=== PATIENT | female | born 1965 | race Caucasian/White ===

== ENCOUNTER → 2016-04-03 | Outpatient (CLI) | payer BC ==
--- NOTE | 2016-04-05 08:31 | MM ---
Reason for exam: screening (asymptomatic). Last mammogram was performed 1 year ago. History: Benign core biopsy of the left breast, 2008. Attempted Procedure of the right breast, April 24, 2006. Took hormonal contraceptives for 2 years beginning at age 18. Physical Findings: A clinical breast exam by your physician is recommended on an annual basis and results should be correlated with mammographic findings. MG 3D Screening Mammo W/Cad Bilateral CC and MLO view(s) were taken. Prior study comparison: March 22, 2015, bilateral MG 3d diag mammo w/cad [facility]. September 07, 2014, left breast MG diagnostic mammo LT w CAD. March 02, 2014, bilateral MG screening mammo w CAD. February 26, 2013, bilateral digital screening mammo w/CAD. There are scattered fibroglandular densities. No significant changes when compared with prior studies. ASSESSMENT: Negative, BI-RAD 1 RECOMMENDATION: Routine screening mammogram of both breasts in 1 year.
== END | disposition home or self-care (01) ==
LOC: RADMAMWWP 10:22
PROVIDERS: ATTEND Internal Medicine
DX: Z12.31 Encounter for screening mammogram for malignant neoplasm of breast (principal)
CPT/HCPCS: 77063; G0202

== ENCOUNTER → 2017-05-07 | Outpatient (CLI) | payer BC ==
--- NOTE | 2017-05-08 07:39 | MM ---
Reason for exam: screening (asymptomatic). Last mammogram was performed 1 year and 1 month ago. History: Benign core biopsy of the left breast, 2008. Attempted Procedure of the right breast, April 24, 2006. Took hormonal contraceptives for 2 years beginning at age 18. Physical Findings: A clinical breast exam by your physician is recommended on an annual basis and results should be correlated with mammographic findings. MG 3D Screening Mammo W/Cad Bilateral CC and MLO view(s) were taken. Prior study comparison: April 03, 2016, bilateral MG 3d screening mammo w/cad. March 22, 2015, bilateral MG 3d diag mammo w/cad [facility]. The breast tissue is heterogeneously dense. This may lower the sensitivity of mammography. Finding: There are typically benign round, linear calcifications in both breasts. There is a chronic nodularity in the right breast. There is no discrete abnormality. ASSESSMENT: Benign, BI-RAD 2 RECOMMENDATION: Routine screening mammogram of both breasts in 1 year.
== END | disposition home or self-care (01) ==
LOC: RADMAMWWP 07:50
PROVIDERS: ATTEND Internal Medicine
DX: Z12.31 Encounter for screening mammogram for malignant neoplasm of breast (principal)
CPT/HCPCS: 77063; 77067

== ENCOUNTER → 2018-06-10 | Outpatient (CLI) | payer BC ==
--- NOTE | 2018-06-11 10:13 | MM ---
Reason for exam: screening (asymptomatic). Last mammogram was performed 1 year and 1 month ago. History: Benign core biopsy of the left breast, 2008. Attempted Procedure of the right breast, April 24, 2006. Took hormonal contraceptives for 2 years beginning at age 18. Physical Findings: A clinical breast exam by your physician is recommended on an annual basis and results should be correlated with mammographic findings. MG 3D Screening Mammo W/Cad Bilateral CC and MLO view(s) were taken. Prior study comparison: May 07, 2017, bilateral MG 3d screening mammo w/cad. April 03, 2016, bilateral MG 3d screening mammo w/cad. The breast tissue is heterogeneously dense. This may lower the sensitivity of mammography. Stable benign calcifications. There is chronic nodularity in the left breast. There is no dominant lesion. No significant changes when compared with prior studies. ASSESSMENT: Benign, BI-RAD 2 RECOMMENDATION: Routine screening mammogram of both breasts in 1 year.
== END | disposition home or self-care (01) ==
LOC: RADMAMWWP 07:31
PROVIDERS: ATTEND Internal Medicine
DX: Z12.31 Encounter for screening mammogram for malignant neoplasm of breast (principal)
CPT/HCPCS: 77063; 77067

== ENCOUNTER → 2019-10-11 | Outpatient (CLI) | payer BC ==
[2019-10-11 08:46] LABS: Basophils # (A) 0.1 k/uL (0-0.2); Basophils % (A) 1 %; Eosinophils # (A) 0.4 k/uL (0-0.7); Eosinophils % (A) 5 %; HCT 39.4 % (34.0-46.0); HGB 13.3 gm/dL (11.4-16.0); Lymphocytes # (A) 1.8 k/uL (1.0-4.8); Lymphocytes % (A) 25 %; MCH 31.1 pg (25.0-35.0); MCHC 33.6 g/dL (31.0-37.0); MCV 92.5 fL (80.0-100.0); Mean Platelet Volume 8.5; Monocytes # (A) 0.5 k/uL (0-1.0); Monocytes % (A) 6 %; Neutrophils # (A) 4.3 k/uL (1.3-7.7); Neutrophils % (A) 60 %; Platelet Count 178 k/uL (150-450); RBC 4.26 m/uL (3.80-5.40); RDW 12.8 % (11.5-15.5); WBC 7.3 k/uL (3.8-10.6)
[2019-10-11 19:27] LABS: Hemoglobin A1C 6.2 % (4.0-6.0)
[2019-10-11 20:21] LABS: African American GFR (CKD) 96.2 (60.0-200.0); Albumin 4.3 g/dL (3.80-4.90); Albumin/Globulin Ratio 2.39 (1.60-3.17); Anion Gap 9.3 mmol/L (4.00-12.00); BUN/Creat Ratio 18.75 Ratio (12.00-20.00); Calcium 9.7 mg/dL (8.7-10.3); Carbon Dioxide 25.7 mmol/L (21.6-31.8); Chol/HDL Ratio 3.32; Globulin 1.8 g/dL (1.6-3.3); LDL Cholesterol,Calculated 72.8 mg/dL (0.0-131.0); Potassium 4.8 mmol/L (3.5-5.5); Total Bilirubin 0.5 mg/dL (0.2-1.2); Total Protein 6.1 g/dL (6.2-8.2); VLDL Calculation 29.2 mg/dL (5.00-40.00)
[2019-10-11 21:24] LABS: Urine Creatinine 25.4 mg/dL
== END | disposition home or self-care (01) ==
LOC: LABWHC1 07:59
PROVIDERS: ATTEND Internal Medicine
DX: E78.00 Pure hypercholesterolemia, unspecified (principal); E11.9 Type 2 diabetes mellitus without complications; E03.9 Hypothyroidism, unspecified; I10 Essential (primary) hypertension
CPT/HCPCS: 36415; 80053; 80061; 82043; 82570; 83036; 84443; 85025

== ENCOUNTER → 2019-12-09 | Outpatient (CLI) | payer BC ==
--- NOTE | 2019-12-13 08:19 | MM ---
Reason for exam: screening (asymptomatic). Last mammogram was performed 1 year and 6 months ago. History: Benign core biopsy of the left breast, 2008. Attempted Procedure of the right breast, April 24, 2006. Took hormonal contraceptives for 2 years beginning at age 18. Physical Findings: A clinical breast exam by your physician is recommended on an annual basis and results should be correlated with mammographic findings. MG 3D Screening Mammo W/Cad Bilateral CC and MLO view(s) were taken. Prior study comparison: June 10, 2018, bilateral MG 3d screening mammo w/cad. May 07, 2017, bilateral MG 3d screening mammo w/cad. There are scattered fibroglandular densities. No significant changes when compared with prior studies. ASSESSMENT: Benign, BI-RAD 2 RECOMMENDATION: Routine screening mammogram of both breasts in 1 year.
== END | disposition home or self-care (01) ==
LOC: RADMAMWWP 10:53
PROVIDERS: ATTEND Internal Medicine
DX: Z12.31 Encounter for screening mammogram for malignant neoplasm of breast (principal)
CPT/HCPCS: 77063; 77067

== ENCOUNTER → 2020-12-28 | Outpatient (CLI) | payer BC ==
--- NOTE | 2020-12-29 12:15 | MM ---
Reason for exam: screening (asymptomatic). Last mammogram was performed 1 year and 1 month ago. History: Patient is postmenopausal. Benign core biopsy of the left breast, 2008. Attempted Procedure of the right breast, April 24, 2006. Took hormonal contraceptives for 2 years beginning at age 18. Physical Findings: A clinical breast exam by your physician is recommended on an annual basis and results should be correlated with mammographic findings. MG 3D Screening Mammo W/Cad Bilateral CC and MLO view(s) were taken. Prior study comparison: December 09, 2019, bilateral MG 3d screening mammo w/cad. June 10, 2018, bilateral MG 3d screening mammo w/cad. May 07, 2017, bilateral MG 3d screening mammo w/cad. Focal asymmetry, changing, may be summation. This finding is changed when compared with previous exams. ASSESSMENT: Incomplete: need additional imaging evaluation, BI-RAD 0 RECOMMENDATION: Special view mammogram of the left breast. If lesion persists on supplemental views, image directed ultrasound is recommended. [facility] will attempt to contact patient to return for supplemental views and ultrasound if indicated.
== END | disposition home or self-care (01) ==
LOC: RADMAMWWP 07:37
PROVIDERS: ATTEND Family Medicine
DX: Z12.31 Encounter for screening mammogram for malignant neoplasm of breast (principal); Z78.0 Asymptomatic menopausal state
CPT/HCPCS: 77063; 77067

== ENCOUNTER → 2021-01-03 | Outpatient (CLI) | payer BC ==
--- NOTE | 2021-01-03 09:32 | MM ---
Reason for exam: additional evaluation requested from abnormal screening. Last mammogram was performed less than 1 month ago. History: Patient is postmenopausal. Benign core biopsy of the left breast, 2008. Attempted Procedure of the right breast, April 24, 2006. Took hormonal contraceptives for 2 years beginning at age 18. Physical Findings: Nurse did not find any significant physical abnormalities on exam. MG 3D Work Up W/Cad LT ML and spot compression MLO view(s) were taken of the left breast. Prior study comparison: December 28, 2020, bilateral MG 3d screening mammo w/cad. December 09, 2019, bilateral MG 3d screening mammo w/cad. The breast tissue is heterogeneously dense. This may lower the sensitivity of mammography. There is no discrete abnormality including area of concern. No significant new findings when compared with previous films. These results were verbally communicated with the patient and result sheet given to the patient on 01/03/21. ASSESSMENT: Negative, BI-RAD 1 RECOMMENDATION: Return to routine screening mammogram schedule for both breasts.
== END | disposition home or self-care (01) ==
LOC: RADMAMWWP 08:50
PROVIDERS: ATTEND Family Medicine
DX: R92.8 Other abnormal and inconclusive findings on diagnostic imaging of breast (principal); Z78.0 Asymptomatic menopausal state
CPT/HCPCS: 77061; 77065

== ENCOUNTER → 2021-01-10 | Outpatient (CLI) | payer BC ==
[2021-01-10 16:58] LABS: Basophils # (A) 0.09 X 10*3/uL (0.00-0.10); Basophils % (A) 1.2 %; Eosinophils # (A) 0.46 X 10*3/uL (0.04-0.35); HCT 42.8 % (37.2-46.3); HGB 13.7 g/dL (12.0-15.0); Lymphocytes # (A) 2.06 X 10*3/uL (0.90-5.00); MCH 29.9 pg (27.0-32.0); MCV 93.4 fL (80.0-97.0); Mean Platelet Volume 12.5 fL (9.5-12.2); Monocytes # (A) 0.59 X 10*3/uL (0.20-1.00); Monocytes % (A) 7.7 %; Neutrophils # (A) 4.38 X 10*3/uL (1.80-7.70); Neutrophils % (A) 57.6 %; Platelet Count 210 X 10*3/uL (140-440); RBC 4.58 X 10*6/uL (4.10-5.20); WBC 7.62 X 10*3/uL (4.50-10.00)
[2021-01-10 18:59] LABS: Albumin 4.5 g/dL (3.8-4.9); Albumin/Globulin Ratio 2.38 (1.60-3.17); Anion Gap 9.7 mmol/L (4.00-12.00); BUN/Creat Ratio 16.75 Ratio (12.00-20.00); Blood Urea Nitrogen 10.6 mg/dL (9.0-27.0); Calcium 9.3 mg/dL (8.7-10.3); Carbon Dioxide 27.6 mmol/L (21.6-31.8); Chol/HDL Ratio 3.9 Ratio; Globulin 1.9 g/dL (1.6-3.3); LDL Cholesterol,Calculated 88.2 mg/dL (0.0-131.0); Non-African American GFR(CKD) 100.1 (60.0-200.0); Potassium 4.6 mmol/L (3.5-5.5); Total Bilirubin 0.4 mg/dL (0.30-1.20); Total Protein 6.4 g/dL (6.2-8.2); VLDL Calculation 30.8 mg/dL (5.00-40.00)
== END | disposition home or self-care (01) ==
LOC: LABWHC1 10:52
PROVIDERS: ATTEND Family Medicine
DX: Z00.00 Encounter for general adult medical examination without abnormal findings (principal); E78.2 Mixed hyperlipidemia; E03.9 Hypothyroidism, unspecified; E11.9 Type 2 diabetes mellitus without complications
CPT/HCPCS: 36415; 80053; 80061; 83036; 84443; 85025

== ENCOUNTER → 2021-05-11 | Outpatient (CLI) | payer BC ==
[2021-05-11 19:11] LABS: ALT 62 U/L (8-44); AST 38 U/L (13-35); Albumin 4.5 g/dL (3.8-4.9); Albumin/Globulin Ratio 2.25 (1.60-3.17); Alkaline Phosphatase 72 U/L (41-126); Bilirubin, Conjugated <0.20 mg/dL (0.20-0.40); Total Protein 6.5 g/dL (6.2-8.2)
== END | disposition home or self-care (01) ==
LOC: LABWHC1 12:08
PROVIDERS: ATTEND Nurse Practitioner Family
DX: Z00.00 Encounter for general adult medical examination without abnormal findings (principal); R94.5 Abnormal results of liver function studies
CPT/HCPCS: 36415; 80076; 82306

== ENCOUNTER → 2021-06-13 | Outpatient (CLI) | payer BC ==
[2021-06-13 14:23] LABS: % Iron Saturation 21.53 (12.00-45.00); Ferritin 71.8 ng/mL (10.0-291.0)
[2021-06-13 14:28] LABS: Hepatitis A Antibody IgM Nonreactive (Nonreactive); Hepatitis B Core IgM Nonreactive (Nonreactive); Hepatitis B Surface Antigen Nonreactive (Nonreactive); Hepatitis C IgG Antibody Nonreactive (Nonreactive)
== END | disposition home or self-care (01) ==
LOC: LABWHC1 07:23
PROVIDERS: ATTEND Nurse Practitioner Family
DX: E11.9 Type 2 diabetes mellitus without complications (principal)
CPT/HCPCS: 36415; 80074; 82728; 83540; 83550

== ENCOUNTER → 2021-06-13 | Outpatient (CLI) | payer BC ==
--- NOTE | 2021-06-13 07:46 | US ---
EXAMINATION TYPE: US liver DATE OF EXAM: 06/13/2021 COMPARISON: NONE CLINICAL HISTORY: R74.01 ELEVATED LIVER TRANSAMINASE LEVELS. Abnormal liver labs EXAM MEASUREMENTS: Liver Length: 23.1 cm Gallbladder Wall: 0.2 cm CBD: 0.4 cm Right Kidney: 12.4 x 5.8 x 4.4 cm Pancreas: wnl Liver: Increased attenuation, decreased visualization of vessels suggestive of fatty infiltrate Gallbladder: No stones seen Evidence for sonographic Garcia's sign: No CBD: wnl Right Kidney: No hydronephrosis or masses seen Visualized pancreas is within normal limits. IVC seen near the hepatic dome. Visualized liver is grace edly heterogeneously hyperechoic. Evaluation for focal masses suboptimal due to the heterogeneity. No surrounding ascites. No internal or external biliary dilatation. No gallstones. IMPRESSION: Heterogeneously hyperechoic appearance of liver consistent with diffuse fatty infiltratio n and/or underlying hepatocellular disease. Patient may benefit with ultrasound elastography or rando m sampling to further evaluate if desired.
== END | disposition home or self-care (01) ==
LOC: RADUSWWP 07:03
PROVIDERS: ATTEND Family Medicine
DX: K76.0 Fatty (change of) liver, not elsewhere classified (principal)
CPT/HCPCS: 76705

== ENCOUNTER → 2021-11-26 | Outpatient (CLI) | payer BC ==
--- NOTE | 2021-11-26 07:28 | MM ---
Reason for Exam: Clinical finding. Last screening mammogram was performed 11 month(s) ago. Patient History: Menarche at age 10. First Full-Term at age 21. Postmenopausal. Hormonal Contraceptives for 2 years from age 18 until age 20. 2008, Benign Core Biopsy on the left side. 04/24/2006, Attempted Procedure on the right side. Risk Values: Eva 5 year model risk: 1.5%. NCI Lifetime model risk: 9.1%. Prior Study Comparison: 12/09/2019 Bilateral Screening Mammogram, [facility]. 12/28/2020 Bilateral Screening Mammogram, [facility]. 01/03/2021 Left Diagnostic Mammogram, [facility]. Tissue Density: The breast tissue is heterogeneously dense. This may lower the sensitivity of mammography. Findings: Analyzed By CAD. No suspicious new masses, cluster of microcalcifications or architecture distortion within either breast. Benign bilateral calcifications noted with right greater than left. No significant change from prior examination. Patient reports left lateral breast pain. Overall Assessment: Benign, BI-RAD 2 Management: Diagnostic Breast Ultrasound of the left breast. A clinical breast exam by your physician is recommended on an annual basis and results should be correlated with mammographic findings. This exam should not preclude additional follow-up of suspicious palpable abnormalities. Results were given to the patient verbally at the time of exam. Electronically signed and approved by: Ac Hoffman D.O.
--- NOTE | 2021-11-26 07:40 | USB ---
Reason for Exam: Clinical finding. Patient History: Menarche at age 10. First Full-Term at age 21. Postmenopausal. Hormonal Contraceptives for 2 years from age 18 until age 20. 2008, Benign Core Biopsy on the left side. 04/24/2006, Attempted Procedure on the right side. Risk Values: Eva 5 year model risk: 1.5%. NCI Lifetime model risk: 9.1%. Technique: Method: Whole Breast Handheld. Prior Study Comparison: 12/09/2019 Bilateral Screening Mammogram, [facility]. 12/28/2020 Bilateral Screening Mammogram, [facility]. 01/03/2021 Left Diagnostic Mammogram, [facility]. Findings: The whole breast of the left breast, the axilla of the left breast and the retroareolar of the left breast were scanned. No solid or cystic masses are identified.. Overall Assessment: Negative, BI-RAD 1 Management: Screening Mammogram of both breasts in 1 year. A clinical breast exam by your physician is recommended on an annual basis and results should be correlated with mammographic findings. Electronically signed and approved by: Ac Hoffman D.O.
== END | disposition home or self-care (01) ==
LOC: RADMAMWWP 06:51
PROVIDERS: ATTEND Family Medicine
DX: N64.4 Mastodynia (principal); Z78.0 Asymptomatic menopausal state; Z98.890 Other specified postprocedural states
CPT/HCPCS: 77062; 77066

== ENCOUNTER → 2022-08-14 | Outpatient (CLI) | payer BC ==
[2022-08-14 14:45] LABS: Basophils # (A) 0.09 X 10*3/uL (0.00-0.10); Basophils % (A) 1.2 %; Eosinophils # (A) 0.57 X 10*3/uL (0.04-0.35); Eosinophils % (A) 7.7 %; HGB 13.1 g/dL (12.0-15.0); Immature Grans, Automated 0.3 %; Lymphocytes # (A) 1.76 X 10*3/uL (0.90-5.00); Lymphocytes % (A) 23.8 %; MCH 28.9 pg (27.0-32.0); MCV 90.5 fL (80.0-97.0); Mean Platelet Volume 12.2 fL (9.5-12.2); Monocytes # (A) 0.59 X 10*3/uL (0.20-1.00); NRBC Per 100 WBC 0 /100 WBCS (0.0-0.0); Neutrophils # (A) 4.36 X 10*3/uL (1.80-7.70); Platelet Count 207 X 10*3/uL (140-440); RBC 4.53 X 10*6/uL (4.10-5.20); RDW 13.1 % (11.5-14.5); WBC 7.39 X 10*3/uL (4.50-10.00)
[2022-08-14 15:24] LABS: LDL Cholesterol,Calculated 87.6 mg/dL (0.0-131.0)
== END | disposition home or self-care (01) ==
LOC: LABWHC1 08:40
PROVIDERS: ATTEND Family Medicine
DX: Z00.00 Encounter for general adult medical examination without abnormal findings (principal); E11.9 Type 2 diabetes mellitus without complications; E78.2 Mixed hyperlipidemia; E03.9 Hypothyroidism, unspecified
CPT/HCPCS: 36415; 80061; 83036; 84439; 84443; 85025

== ENCOUNTER → 2023-01-01 | Outpatient (CLI) | payer BC ==
--- NOTE | 2023-01-02 10:51 | MM ---
Reason for Exam: Screening (asymptomatic). Last mammogram was performed 1 year(s) and 1 month(s) ago. Patient History: Menarche at age 10. First Full-Term at age 21. Postmenopausal. Patient has history of breast feeding. Hormonal Contraceptives for 2 years from age 18 until age 20. 2008, Benign Core Biopsy on the left side. 04/24/2006, Attempted Procedure on the right side. Risk Values: Eva 5 year model risk: 1.6%. NCI Lifetime model risk: 8.9%. Prior Study Comparison: 12/28/2020 Bilateral Screening Mammogram, [facility]. 01/03/2021 Left Diagnostic Mammogram, [facility]. 11/26/2021 Bilateral MG 3D diag mammo w/cad [facility], [facility]. Tissue Density: There are scattered fibroglandular densities. Findings: Analyzed By CAD. There is no suspicious group of microcalcifications or new suspicious mass. Overall Assessment: Negative, BI-RAD 1 Management: Screening Mammogram of both breasts in [address] [facility] will attempt to contact patient to return for supplemental views and ultrasound if indicated. Patient should continue monthly self-breast exams. A clinical breast exam by your physician is recommended on an annual basis. This exam should not preclude additional follow-up of suspicious palpable abnormalities. Note on Eva scores and lifetime risk: 1. A Eva score greater than 3% is considered moderate risk. If this is the case, consider specialist referral to assess eligibility for a risk reducing agent. 2. If overall lifetime risk for the development of breast cancer is 20% or higher, the patient may qualify for future screening with alternating mammogram and breast MRI. Electronically signed and approved by: Gato Solis DO
== END | disposition home or self-care (01) ==
LOC: RADMAMWWP 07:35
PROVIDERS: ATTEND Family Medicine
DX: Z12.31 Encounter for screening mammogram for malignant neoplasm of breast (principal); Z78.0 Asymptomatic menopausal state
CPT/HCPCS: 77063; 77067

== ENCOUNTER → 2023-08-04 | Outpatient (CLI) | payer BC ==
[2023-08-04 15:52] LABS: Chol/HDL Ratio 3.75 Ratio
[2023-08-04 15:53] LABS: ALT 30 U/L (8-44); AST 25 U/L (13-35); Albumin 4.4 g/dL (3.8-4.9); Alkaline Phosphatase 77 U/L (41-126); BUN/Creat Ratio 16.71 Ratio (12.00-20.00); Blood Urea Nitrogen 11.7 mg/dL (9.0-27.0); Calcium 9.4 mg/dL (8.7-10.3); Carbon Dioxide 28.4 mmol/L (21.6-31.8); Chloride 101 mmol/L (96-109); Glucose 143 mg/dL (70-110); Potassium 4.6 mmol/L (3.5-5.5); Sodium 141 mmol/L (135-145); Total Bilirubin 0.4 mg/dL (0.3-1.2); Total Protein 6.4 g/dL (6.2-8.2)
[2023-08-05 13:58] LABS: Microalbumin Creatinine Ratio <16 mg/g Cr (0-30); Urine Creatinine 77.3 mg/dL (28.0-217.0)
== END | disposition home or self-care (01) ==
LOC: LABWHC1 08:07
PROVIDERS: ATTEND Internal Medicine Endocrinology, Diabetes & Metabolism
DX: E11.65 Type 2 diabetes mellitus with hyperglycemia (principal)
CPT/HCPCS: 36415; 80053; 80061; 82043; 82570; 83036; 84443

== ENCOUNTER → 2024-02-09 | Outpatient (CLI) | payer MEDICAID ==
[2024-02-09 10:12] LABS: Basophils # (A) 0.07 X 10*3/uL (0.00-0.10); Basophils % (A) 0.8 %; Eosinophils # (A) 0.24 X 10*3/uL (0.04-0.35); Eosinophils % (A) 2.8 %; HCT 48.1 % (37.2-46.3); HGB 15.3 g/dL (12.0-15.0); Lymphocytes # (A) 1.45 X 10*3/uL (0.90-5.00); Lymphocytes % (A) 17.1 %; MCH 28.5 pg (27.0-32.0); MCHC 31.8 g/dL (32.0-37.0); MCV 89.7 FL (80.0-97.0); Mean Platelet Volume 12.4 FL (9.5-12.2); Monocytes # (A) 0.69 X 10*3/uL (0.20-1.00); Monocytes % (A) 8.2 %; NRBC Per 100 WBC 0 X 10*3/uL (0.00-0.01); Neutrophils # (A) 5.98 X 10*3/uL (1.80-7.70); Neutrophils % (A) 70.7 %; Platelet Count 217 X 10*3/uL (140-440); RBC 5.36 X 10*6/uL (4.10-5.20); RDW 13.3 % (11.5-14.5); WBC 8.46 X 10*3/uL (4.50-10.00)
[2024-02-09 11:13] LABS: Erythrocyte Sedimentation Rate 10 mm/Hr (0-30)
[2024-02-09 11:39] LABS: ALT 26 U/L (8-44); AST 27 U/L (13-35); Albumin 4.5 g/dL (3.8-4.9); Albumin/Globulin Ratio 2.37 Ratio (1.60-3.17); Alkaline Phosphatase 90 U/L (41-126); BUN/Creat Ratio 13.88 Ratio (12.00-20.00); Blood Urea Nitrogen 11.1 mg/dL (9.0-27.0); C Reactive Protein <0.30 mg/dL (0.00-0.80); Calcium 9.7 mg/dL (8.7-10.3); Carbon Dioxide 25.1 mmol/L (21.6-31.8); Chloride 101 mmol/L (96-109); Chol/HDL Ratio 3.29 Ratio; Globulin 1.9 g/dL (1.6-3.3); Glucose 133 mg/dL (70-110); LDL Cholesterol,Calculated 80.7 mg/dL (0.0-131.0); Sodium 140 mmol/L (135-145); Total Bilirubin 0.5 mg/dL (0.3-1.2); Total Protein 6.4 g/dL (6.2-8.2); VLDL Calculation 14.68 mg/dL (5.00-40.00)
[2024-02-09 13:05] LABS: T4, Free (Free Thyroxine) 1.46 ng/dL (0.80-1.80)
== END | disposition home or self-care (01) ==
LOC: LABWHC1 07:22
PROVIDERS: ATTEND Family Medicine
DX: I10 Essential (primary) hypertension (principal); E13.9 Other specified diabetes mellitus without complications; E03.9 Hypothyroidism, unspecified; E55.9 Vitamin D deficiency, unspecified; G60.9 Hereditary and idiopathic neuropathy, unspecified
CPT/HCPCS: 36415; 80053; 80061; 82306; 82607; 83036; 84439; 84443; 84481; 85025; 85652; 86140

== ENCOUNTER → 2024-02-09 | Outpatient (CLI) | payer MEDICAID ==
--- NOTE | 2024-02-10 18:09 | MM ---
Reason for Exam: Screening (asymptomatic). Last mammogram was performed 1 year(s) and 1 month(s) ago. Patient History: Menarche at age 10. First Full-Term at age 21. Postmenopausal. Patient has history of breast feeding. Hormonal Contraceptives for 2 years from age 18 until age 20. 2008, Benign Core Biopsy on the left side. 04/24/2006, Attempted Procedure on the right side. Risk Values: Eva 5 year model risk: 1.6%. NCI Lifetime model risk: 8.7%. Prior Study Comparison: 01/03/2021 Left Diagnostic Mammogram, [facility]. 11/26/2021 Bilateral MG 3D diag mammo w/cad [facility], [facility]. 01/01/2023 Bilateral MG 3D screening mammo w/cad, [facility]. Tissue Density: There are scattered areas of fibroglandular density. Findings: Analyzed By CAD. Findings which suggest subareolar duct ectasia on both sides are unchanged. Benign secretory calcifications on the right. There is no suspicious group of microcalcifications or new suspicious mass in either breast. Overall Assessment: Benign, BI-RAD 2 Management: Screening Mammogram of both breasts in 1 year. . Patient should continue monthly self-breast exams. A clinical breast exam by your physician is recommended on an annual basis. This exam should not preclude additional follow-up of suspicious palpable abnormalities. Note on Eva scores and lifetime risk: 1. A Eva score greater than 3% is considered moderate risk. If this is the case, consider specialist referral to assess eligibility for a risk reducing agent. 2. If overall lifetime risk for the development of breast cancer is 20% or higher, the patient may qualify for future screening with alternating mammogram and breast MRI. [facility], , 02/10/2024 6:06 PM. Electronically signed and approved by: Staci Selby M.D. Radiologist
== END | disposition home or self-care (01) ==
LOC: RADMAMWWP 08:07
PROVIDERS: ATTEND Family Medicine
DX: Z12.31 Encounter for screening mammogram for malignant neoplasm of breast (principal); Z78.0 Asymptomatic menopausal state; R92.323 Mammographic fibroglandular density, bilateral breasts
CPT/HCPCS: 77063; 77067

== ENCOUNTER → 2024-03-15 | Outpatient (CLI) | payer MEDICAID ==
--- NOTE | 2024-03-15 08:20 | USB ---
Reason for Exam: Clinical finding. Patient History: Menarche at age 10. First Full-Term at age 21. Postmenopausal. Patient has history of breast feeding. Hormonal Contraceptives for 2 years from age 18 until age 20. 2008, Benign Core Biopsy on the left side. 04/24/2006, Attempted Procedure on the right side. Risk Values: Eva 5 year model risk: 1.6%. NCI Lifetime model risk: 8.7%. Technique: Method: Targeted. Prior Study Comparison: 11/26/2021 Bilateral MG 3D diag mammo w/cad [facility], [facility]. 01/01/2023 Bilateral MG 3D screening mammo w/cad, [facility]. 02/09/2024 Bilateral MG 3D screening mammo w/cad, [facility]. Findings: The upper section of the breast of the left breast, the axilla of the left breast and the retroareolar of the left breast were scanned. No solid or cystic masses are identified.. Prominent ducts are anterior left breast well away from the location of the reported palpable region. No discrete cyst or solid structure 13 cm nipple 12-1:00 position is identified. Overall Assessment: Benign, BI-RAD 2 Management: Screening Mammogram of both breasts in 11 months. A clinical breast exam by your physician is recommended on an annual basis and results should be correlated with mammographic findings. This exam should not preclude additional follow-up of suspicious palpable abnormalities. Results were given to the patient verbally at the time of exam. [facility], , 03/15/2024 8:10 AM. Electronically signed and approved by: Charles Tse D.O. Radiologis
== END | disposition home or self-care (01) ==
LOC: RADUSWWP 07:35
PROVIDERS: ATTEND Family Medicine
DX: N63.20 Unspecified lump in the left breast, unspecified quadrant (principal); Z78.0 Asymptomatic menopausal state

== ENCOUNTER → 2024-09-28 | Outpatient (CLI) | payer MEDICAID ==
[2024-09-28 11:45] LABS: Basophils # (A) 0.07 X 10*3/uL (0.00-0.10); Basophils % (A) 0.8 %; Eosinophils # (A) 0.29 X 10*3/uL (0.04-0.35); Eosinophils % (A) 3.2 %; HCT 42.1 % (37.2-46.3); HGB 13.4 g/dL (12.0-15.0); Immature Grans, Automated 0.20 %; Lymphocytes # (A) 2.39 X 10*3/uL (0.90-5.00); Lymphocytes % (A) 26.5 %; MCH 28.9 pg (27.0-32.0); MCHC 31.8 g/dL (32.0-37.0); MCV 90.9 FL (80.0-97.0); Monocytes # (A) 0.93 X 10*3/uL (0.20-1.00); Monocytes % (A) 10.3 %; NRBC Per 100 WBC 0 X 10*3/uL (0.00-0.01); Neutrophils # (A) 5.33 X 10*3/uL (1.80-7.70); Neutrophils % (A) 59.0 %; Platelet Count 209 X 10*3/uL (140-440); RBC 4.63 X 10*6/uL (4.10-5.20); RDW 13.2 % (11.5-14.5); WBC 9.03 X 10*3/uL (4.50-10.00)
[2024-09-28 12:15] LABS: BUN/Creat Ratio 21.00 Ratio (12.00-20.00); Blood Urea Nitrogen 14.7 mg/dL (9.0-27.0); Chloride 106 mmol/L (96-109); Cholesterol 149.00 mg/dL (0.00-200.00); Glucose 109 mg/dL (70-110); HDL Cholesterol 43.00 mg/dL (40.00-60.00); LDL Cholesterol,Calculated 88.8 mg/dL (0.0-131.0); Potassium 4.7 mmol/L (3.5-5.5); Sodium 140 mmol/L (135-145); Triglycerides 86.10 mg/dL (0.00-149.00); VLDL Calculation 17.22 mg/dL (5.00-40.00)
[2024-09-28 12:16] LABS: ALT 20 U/L (8-44); AST 22 U/L (13-35); Albumin 4.1 g/dL (3.8-4.9); Albumin/Globulin Ratio 2.28 Ratio (1.60-3.17); Alkaline Phosphatase 71 U/L (41-126); Anion Gap 10.10 mmol/L (4.00-12.00); Calcium 8.8 mg/dL (8.7-10.3); Carbon Dioxide 23.9 mmol/L (21.6-31.8); Globulin 1.8 g/dL (1.6-3.3); T4, Free (Free Thyroxine) 1.10 ng/dL (0.80-1.80); Total Protein 5.9 g/dL (6.2-8.2)
== END | disposition home or self-care (01) ==
LOC: LABWHC1 07:33
PROVIDERS: ATTEND Family Medicine
DX: E03.9 Hypothyroidism, unspecified (principal); E55.9 Vitamin D deficiency, unspecified; E78.5 Hyperlipidemia, unspecified; D75.1 Secondary polycythemia
CPT/HCPCS: 36415; 80053; 80061; 82306; 84439; 84443; 84481; 85025